=== PATIENT | female | born 1980 | race Caucasian/White ===

== ENCOUNTER → 2020-07-30 11:54 | Outpatient (CLI) | payer OTHER, SELFPAY ==
--- NOTE | ~2020-07-30 | XR_ITS ---
EXAMINATION: XR hip BI 2V w AP pelvis DATE: 07/30/2020 12:15 INDICATION: Hip pain TECHNIQUE: AP view of the pelvis and two views of each hip were obtained. COMPARISON: None. FINDINGS: Bone alignment is normal. There is no fracture. There is mild osteoarthritis of the hips. T he soft tissues are unremarkable. IMPRESSION: 1. Mild osteoarthritis of the hips. Reviewed, dictated and finalized at location B.
== END ==
PROVIDERS: PCP Internal Medicine; Visit Provider Internal Medicine
DX: M16.0 Bilateral primary osteoarthritis of hip (principal)
CPT/HCPCS: 73521

== ENCOUNTER → 2021-01-28 11:33 | Outpatient (CLI) | payer BC, SELFPAY ==
--- NOTE | ~2021-01-28 | XR_ITS ---
[[id number] ] INDICATION: Sternum and rib pain after trauma TECHNIQUE: Frontal projection of the upper right ribs, frontal projection of the lower right ribs, ob lique projection of all the right ribs, frontal inspiratory chest x-ray for interpretation. FINDINGS: There are no displaced rib fractures identified. There are no soft tissue abnormality see n. The lungs are clear. IMPRESSION: 1:No displaced rib fractures. Reviewed, dictated and finalized at location A. [employer]
== END ==
PROVIDERS: PCP Internal Medicine
DX: R07.81 Pleurodynia (principal)
CPT/HCPCS: 71101

== ENCOUNTER → 2021-08-05 14:22 | Outpatient (CLI) | payer BC, SELFPAY ==
--- NOTE | ~2021-08-05 | XR_ITS ---
EXAMINATION: XR scoliosis survey DATE: 08/05/2021 15:11 INDICATION: Scoliosis. TECHNIQUE: 2 views of the entire spine standing with breast geller were obtained. COMPARISON: None. FINDINGS: There are 12 pairs of ribs. There are 5 nonrib-bearing lumbar segments. There is 8 degrees levocurvature from T1 to L1 by the Valdes method. There is 15 degrees dextroscoliosis from L1 to L4. Ve rtebral body heights are normal. Intervertebral disc heights are normal. There are employed osteophyt es at multiple levels. IMPRESSION: 1. 8 degrees levocurvature from T1 to L1 and 15 degrees dextroscoliosis from L1 to L4. Reviewed, dictated and finalized at location A.
== END ==
PROVIDERS: PCP Internal Medicine; Visit Provider Internal Medicine
DX: M41.86 Other forms of scoliosis, lumbar region (principal)
CPT/HCPCS: 72082